=== PATIENT | male | born 2000 | race Caucasian/White ===

== ENCOUNTER 2019-09-10 19:31 | Emergency (ER) | payer OTHER ==
[~2019-09-10] VITALS: Ht 182.8 cm; Wt 72.6 kg
[2019-09-10] MEDS ORDERED: Tobrex Ophth S2.5 ML OPH (20:25)
== END 2019-09-10 20:48 | disposition home or self-care (01) ==
LOC: ED 19:31
DX: S05.02XA Injury of conjunctiva and corneal abrasion without foreign body, left eye, initial encounter (principal); X58.XXXA Exposure to other specified factors, initial encounter; Y93.89 Activity, other specified; Y92.89 Other specified places as the place of occurrence of the external cause; Y99.8 Other external cause status